=== PATIENT | male | born 1975 | race Caucasian/White ===

== ENCOUNTER 2024-12-20 13:40 | Emergency (ER) | payer OTHER ==
[2024-12-20 13:48] VITALS: TEMP 98.2
--- NOTE | 2024-12-20 13:53 | ED ---
General Adult HPI - General Chief complaint: Fall Stated complaint: Head injury Time Seen by Provider: 12/20/24 13:44 Source: patient, EMS, RN notes reviewed, old records reviewed Mode of arrival: ambulatory Limitations: no limitations - History of Present Illness Initial comments: 49-year-old male presents after fall which occurred several hours ago. Patient states he slipped on the ice hitting the back of his head around 10 AM. He states he had a headache and did not feel well so he laid down in his office. He was at work at the time and staff members were unable to contact him. Ultimately when he made contact the patient was sleeping on the floor of his office. 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 Complains of a headache. Patient removed his c-collar. He denies anticoagulation. Denies focal numbness or weakness. - Related Data Home Medications Medication Instructions Recorded Confirmed HYDROcodone/APAP 7.5-325MG [[place] 1 tab PO BID 12/20/24 12/20/24 7.5-325] HYDROcodone/APAP 7.5-325MG [[place] 1 tab PO DAILY PRN 12/20/24 12/20/24 7.5-325] Tirzepatide [Mounjaro] 5 mg SQ TU 12/20/24 12/20/24 Allergies Allergy/AdvReac Type Severity Reaction Status Date / Time No Known Allergies Allergy Verified 12/20/24 14:11 Review of Systems ROS Statement: Those systems with pertinent positive or pertinent negative responses have been documented in the HPI. ROS Other: All systems not noted in ROS Statement are negative. Past Medical History Past Medical History: Diabetes Mellitus History of Any Multi-Drug Resistant Organisms: None Reported Past Surgical History: Hernia Repair Additional Past Surgical History / Comment(s): eye surgery as a child Past Psychological History: No Psychological Hx Reported Smoking Status: Current every day smoker Past Alcohol Use History: Occasional Past Drug Use History: None Reported General Exam Limitations: no limitations General appearance: alert, in no apparent distress Head exam: Present: other (Tenderness on the occipital scalp) Eye exam: Present: normal appearance, PERRL ENT exam: Absent: TM's normal bilaterally (Left hemotympanum) Neck exam: Present: other (Refuses c-collar). Absent: tenderness Respiratory exam: Present: normal lung sounds bilaterally. Absent: respiratory distress, wheezes Cardiovascular Exam: Present: regular rate, normal rhythm GI/Abdominal exam: Present: soft. Absent: distended, tenderness, guarding Extremities exam: Present: normal inspection, normal capillary refill Neurological exam: Present: alert, oriented X3, CN II-XII intact, other (GCS 15). Absent: motor sensory deficit Psychiatric exam: Present: normal affect, normal mood Skin exam: Present: warm, dry, intact Course Vital Signs 12/20/24 12/20/24 12/20/24 13:41 14:12 14:19 Temperature 98.2 F Pulse Rate 96 94 98 Respiratory 20 18 18 Rate Blood Pressure 146/99 127/79 111/66 O2 Sat by Pulse 99 98 98 Oximetry Medical Decision Making - Medical Decision Making Was pt. sent in by a medical professional or institution (LISETH Rawls, THERAPIST PHYS, urgent care, hospital, or shelter...) When possible be specific @ -No Did you speak to anyone other than the patient for history (EMS, parent, family, police, friend...)? What history was obtained from this source @ -No Did you review nursing and triage notes (agree or disagree)? Why? @ -I reviewed and agree with nursing and triage notes Were old charts reviewed (outside hosp., previous admission, EMS record, old EKG, old radiological studies, urgent care reports/EKG's, shelter records)? Report findings @ -No old charts were reviewed Differential diagnosis:, concussion, intracranial hemorrhage, basilar skull fracture EKG interpreted by me (3pts min.). @ -Sinus rhythm rate of 94, NM interval 184, QRS duration 104, QTc [address] segment elevation. X-rays interpreted by me (1pt min.). @ -None done CT interpreted by me (1pt min.). @ -Brain CT showing traumatic subarachnoid hemorrhage, CT cervical spine negative for fracture or subluxation. U/S interpreted by me (1pt. min.). @ -None done What testing was considered but not performed or refused? (CT, X-rays, U/S, labs)? Why? @ -None What meds were considered but not given or refused? Why? @ -None Did you discuss the management of the patient with other professionals (professionals i.e. LISETH Rawls, THERAPIST PHYS, lab, RT, psych nurse, social work nurse, lens assistant, teacher, fisheries officer, case operator)? Give summary @Case discussed with transfer team at [facility], Dr. Toussaint Was smoking cessation discussed for >3mins.? @ -No Was critical care preformed (if so, how long)? @ -yes 35 min Were there social determinants of health that impacted care today? How? (Homelessness, low income, unemployed, alcoholism, drug addiction, transportation, low edu. Level, literacy, decrease access to med. care, halfway, rehab)? @ -No Was there de-escalation of care discussed even if they declined (Discuss DNR or withdrawal of care, Hospice)? DNR status @ -No What co-morbidities impacted this encounter? (DM, HTN, Smoking, COPD, CAD, Can cer, CVA, ARF, Chemo, Hep., AIDS, mental health diagnosis, sleep apnea, morbid obesity)? @ -None Was patient admitted / discharged? Hospital course, mention meds given and route, prescriptions, significant lab abnormalities, going to OR and other pertinent info. @ -49-year-old male presenting status post fall which occurred approximately 4 hours prior to arrival with occipital head injury, patient complaining of headache, no focal numbness or weakness, GCS of 15, vital signs are stable. CT brain showing subarachnoid hemorrhage, and fracture through the temporal bone with pneumocephalus. Patient covered with IV antibiotics, given Keppra for seizure prophylaxis. Transfer to [facility]. Undiagnosed new problem with uncertain prognosis? @ -No Drug Therapy requiring intensive monitoring for toxicity (Heparin, Nitro, Insulin, Cardizem)? @ -No Were any procedures done? @ -No Diagnosis/symptom? @Traumatic subarachnoid hemorrhage, basilar skull fracture Acute, or Chronic, or Acute on Chronic? @ -Acute Uncomplicated (without systemic symptoms) or Complicated (systemic symptoms)? @Complicated Side effects of treatment? @ -No Exacerbation, Progression, or Severe Exacerbation? @ -No Poses a threat to life or bodily function? How? (Chest pain, USA, AR, pneumonia, PE, COPD, DKA, ARF, appy, cholecystitis, CVA, Diverticulitis, Homicidal, Suicidal, threat to staff... and all critical care pts) @ -No - Lab Data Result diagrams: 12/20/24 14:09 Lab Results 12/20/24 Range/Units 14:09 WBC 17.9 H (3.8-10.6) k/uL RBC 5.41 (4.30-5.90) m/uL Hgb 17.2 (13.0-17.5) gm/dL Hct 51.1 (39.0-53.0) % MCV 94.5 (80.0-100.0) fL MCH 31.7 (25.0-35.0) pg MCHC 33.6 (31.0-37.0) g/dL RDW 13.4 (11.5-15.5) % Plt Count 250 (150-450) k/uL MPV 7.7 Neutrophils % 90 % Lymphocytes % 6 % Monocytes % 3 % Eosinophils % 0 % Basophils % 0 % Neutrophils # 16.1 H (1.3-7.7) k/uL Lymphocytes # 1.1 (1.0-4.8) k/uL Monocytes # 0.5 (0-1.0) k/uL Eosinophils # 0.1 (0-0.7) k/uL Basophils # 0.0 (0-0.2) k/uL Critical Care Time Critical Care Time: Yes Total Critical Care Time: 35 Disposition Clinical Impression: Fall, Acute intra-cranial hemorrhage, Subarachnoid hemorrhage, Skull fracture Disposition: OTHER INSTITUTION NOT DEFINED Condition: Serious Is patient prescribed a controlled substance at d/c from ED?: No Referrals: None,Stated [Primary Care Provider] - 1-2 days Time of Disposition: 14:17 - Out of Hospital Transfer - Req. Specs Out of Hospital Transfer - Requested Specifics: Other Emergency Center (Transfer To [facility])
[2024-12-20] MEDS: levETIRAcetam IV 2,000 MG in SODIUM CHLORIDE 0.9% 250 ML IVPB ONE (14:18)
[2024-12-20 14:22] LABS: Basophils % (A) 0 %; Eosinophils # (A) 0.1 k/uL (0-0.7); Eosinophils % (A) 0 %; HCT 51.1 % (39.0-53.0); HGB 17.2 gm/dL (13.0-17.5); Lymphocytes # (A) 1.1 k/uL (1.0-4.8); Lymphocytes % (A) 6 %; MCH 31.7 pg (25.0-35.0); MCHC 33.6 g/dL (31.0-37.0); MCV 94.5 fL (80.0-100.0); Mean Platelet Volume 7.7; Monocytes # (A) 0.5 k/uL (0-1.0); Monocytes % (A) 3 %; Neutrophils # (A) 16.1 k/uL (1.3-7.7); Neutrophils % (A) 90 %; Platelet Count 250 k/uL (150-450); RBC 5.41 m/uL (4.30-5.90); RDW 13.4 % (11.5-15.5); WBC 17.9 k/uL (3.8-10.6)
--- NOTE | 2024-12-20 14:27 | CT ---
EXAMINATION TYPE: CT brain radha wo con DATE OF EXAM: 12/20/2024 COMPARISON: None CLINICAL INDICATION: Male, 49 years old with history of fall, CHRISTINA, left-sided hemotympanum; PHH, fall, CHRISTINA, left-sided hemotympanum TECHNIQUE: CT scan of the head and cervical spine are performed without contrast. CT DLP: 1532.[address] CTDI: mGy Automated exposure control for dose reduction was used. Findings: Head CT: The ventricles, basal cisterns and sulci of the convexities are within normal limits and there is no mass effect or shift in midline structures. There is moderate to marked acute subarachnoid hemorrhage in the frontal lobes and in the left tempor al lobe including the sylvian fissure.. There are a few droplets of air in the extra-axial spaces in the left medial cranial fossa and there is a nondisplaced fracture through the superior aspect of the left temporal bones traversing the mastoid air cells. There is fluid or blood within the left mastoi d air cells and within the tympanic cavity. . Posterior fossa including the brainstem, fourth ventricle and cerebellar pontine angles are grossly normal. The intraorbital contents appear normal and symmetric. There are marked chronic inflammatory changes in the paranasal sinuses. CT cervical spine: Craniovertebral junction relationships and prevertebral soft tissues are normal. The cervical vertebral segments are normal in height and alignment and there is no fracture subluxati on. The disc spaces are well-maintained in height and there is no significant degenerative disc disease. The bony cervical canal is widely patent and there is no bony encroachment of the neural foramina. The paraspinal soft tissues unremarkable. IMPRESSION: 1. Head CT: Acute fracture through the left temporal bone and mastoid air cells resulting in air drop lets in the middle cranial fossa (pneumocephalus). There is acute subarachnoid hemorrhage involving t he frontal lobes and left temporal lobe. 2. CT cervical spine: No acute trauma. Emergency room physician was notified of this important finding on 2519 2:20 PM [facility], , 12/20/2024 2:25 PM
[2024-12-20] MEDS: HYDROmorphone 0.5 MG/0.5 ML SYRINGE IVP STA (14:29)
[2024-12-20 14:37] LABS: Influenza A Not Detected (Not Detectd); Influenza B Not Detected (Not Detectd); RSV Not Detected (Not Detectd)
[2024-12-20] MEDS: SODIUM CHLORIDE 0.9% 1,000 ML IV SCH (14:37)
[2024-12-20] MEDS: AMPICILLIN-SULBACTAM 3 GM in SODIUM CHLORIDE 0.9% 100 ML IVPB STA (14:37)
[2024-12-20 14:54] LABS: Partial Thromboplastin Time 24.6 sec (22.0-30.0); Prothrombin Time 11.4 sec (10.0-12.5)
[2024-12-20 15:01] VITALS: BP 126/76; PULSE 107; RESP 20
== END 2024-12-20 15:11 | disposition other institution (70) ==
LOC: EC 13:40
DX: S06.6XAA Traumatic subarachnoid hemorrhage with loss of consciousness status unknown, initial encounter (principal); S02.91XA Unspecified fracture of skull, initial encounter for closed fracture; F17.200 Nicotine dependence, unspecified, uncomplicated; W00.0XXA Fall on same level due to ice and snow, initial encounter
CPT/HCPCS: 36415; 93005; 85025; 85610; 85730; 87636; 72125; 70450; 99291; 96365; 96368; 96375; J0295; J1953; J1171

== ENCOUNTER → 2025-01-19 | Outpatient (CLI) | payer OTHER ==
--- NOTE | 2025-01-19 13:46 | CT ---
EXAMINATION TYPE: CT brain wo con CT DLP: 1207 mGycm, Automated exposure control for dose reduction was used. DATE OF EXAM: 01/19/2025 1:36 PM COMPARISON: CT brain C-spine 12/20/2024 CLINICAL INDICATION:Male, 49 years old with history of S02.91XS UNSPECIFIED FRACTURE OF SKULL, SEQUEL A, follow up skull fx TECHNIQUE: Brain: Multiple axial CT images of the brain were obtained without IV contrast. . Coronal and sagitta l reformats reviewed. FINDINGS: Brain: Extra-axial spaces: No abnormal extra-axial fluid collections. Resolution of previously demonstrated left subarachnoid hemorrhage involving the frontal lobes and temporal lobe. Resolution of pneumocepha david. Ventricular system: Within normal limits Cerebral parenchyma: No acute intraparenchymal hemorrhage or mass effect. Resolution of intraparench ymal hemorrhage involving the inferior left frontal lobe with some residual low density. The weber-whi te junction is well differentiated. Cerebellum: Unremarkable. Mass effect: No evidence of midline shift. Intracranial vasculature: unremarkable Soft tissues: Resolution of surrounding left temporal soft tissue gas. Calvarium/osseous structures: Redemonstration of nondisplaced fracture through the left temporal bone and mastoid air cells. No depressed skull fracture. Paranasal sinuses and mastoid air cells: Partial visualization of the bilateral maxillary sinuses dem onstrate some mucosal thickening. The remaining visualized paranasal sinuses are clear. The right mas toid air cells are clear. Left mastoid effusion redemonstrated. Visualized orbits: Orbital contents are intact. IMPRESSION: 1. No acute intracranial process. Resolution of previously demonstrated subarachnoid and intraparenc hymal hemorrhage. Resolution of pneumocephalus. 2. Redemonstration of nondisplaced fracture of the left temporal bone and mastoid air cells with lef t mastoid effusion redemonstrated. [facility], , 01/19/2025 1:44 PM
== END | disposition home or self-care (01) ==
LOC: RADCTMAIN 13:17
PROVIDERS: ATTEND Specialist
DX: S02.91XS Unspecified fracture of skull, sequela (principal); S06.5XAA Traumatic subdural hemorrhage with loss of consciousness status unknown, initial encounter; S02.19XA Other fracture of base of skull, initial encounter for closed fracture; X58.XXXA Exposure to other specified factors, initial encounter
CPT/HCPCS: 70450

== ENCOUNTER → 2025-02-06 | Outpatient (CLI) | payer OTHER ==
--- NOTE | 2025-02-07 13:50 | MR ---
EXAMINATION TYPE: MR brain wo/w cspine wo DATE OF EXAM: 02/06/2025 9:27 PM COMPARISON: CT brain 01/19/2025, CT brain C-spine 12/20/2024 CLINICAL INDICATION: Male, 49 years old with history of M54.2, S06.0XAA, Hx fall, concussion, skull f x, LUE/LLE pain. IV Contrast: 10 cc Gadobutrol (None if empty) TECHNIQUE: Multiplanar, multisequence images of the brain is performed without and with IV contrast utilizing ut ilizing 10 mL intravenous Gadobutrol. Multiplanar, multi sequence images of the cervical spine is per formed without intravenous contrast. FINDINGS: Diffusion weighted images demonstrate no evidence of a recent infarct or other diffusion ab normality. Confluent periventricular white matter changes most prominent within the bilateral parieta l lobes. The ventricular system and cisternal spaces are normal in size and appearance. The brain vo lume is age appropriate. There is blooming artifact identified within the subarachnoid spaces of the left frontal, parietal and temporal convexity related to hemosiderin deposition from prior subarachno id hemorrhage. There is a regions of blooming artifact within the bilateral inferior frontal lobes re lated to prior intraparenchymal hemorrhage/contusion. No definitive residual intraparenchymal or suba rachnoid hemorrhage identified. Midline structures demonstrate normal morphology. Known left temporal bone fracture is better appreci ated on prior CT. This extends to the left lambdoidal suture. The craniocervical junction appears wit hin normal limits. Post contrast images demonstrate 2 small regions of enhancement within the left temporal bone mastoid region at fracture site (series 1501, image 20 and 24). The dural venous sinuse s appear patent. Minimal mucosal thickening of the right maxillary sinus. Moderate mucosal thickening of the left maxillary sinus. Mild mucosal thickening in ethmoid sinuses. Left mastoid effusion. The globes are intact. Alignment: The cervical vertebral bodies have preserved heights. Alignment is within normal limits gi michelle patient positioning. Bones: Bone signal is within normal limits. No abnormal STIR signal. Cord: The spinal cord is unremarkable with regards to their signal intensity and morphology. Discs: Minimal multilevel disc desiccation is present. C2-C3: No significant disc pathology. The spinal canal is patent. No neural foraminal stenosis. C3-C4: No significant disc pathology. The spinal canal is patent. No neural foraminal stenosis. C4-C5: No significant disc pathology. The spinal canal is patent. No neural foraminal stenosis. C5-C6: No significant disc pathology. The spinal canal is patent. No neural foraminal stenosis. C6-C7: Minimal broad-based disc bulge without significant effacement of the anterior thecal sac. No c entral canal stenosis. Minimal bilateral neural foraminal narrowing. C7-T1: No significant disc pathology. The spinal canal is patent. No neural foraminal stenosis. Other: None. IMPRESSION: 1. No evidence of intracranial mass or acute/subacute infarct. 2. Posttraumatic changes with hemosiderin deposition from prior subarachnoid hemorrhage involving th e left cerebral convexity. Additional hemosiderin deposition from prior bilateral inferior frontal lo be contusion/intraparenchymal hemorrhage. Posttraumatic changes with left mastoid effusion and known left temporal bone fracture. There is enhancement identified along the fracture site suggesting infla mmation. 3. Nonspecific mild white matter changes, likely related to small vessel ischemic disease. 4. Minimal degenerative disc disease. No disc herniation. No significant spinal canal or neuroforami na stenosis. [facility], , 02/07/2025 1:48 PM
== END | disposition home or self-care (01) ==
LOC: RADMRIMAIN 20:45
PROVIDERS: ATTEND Psychiatry & Neurology Neurology
DX: S06.0XAA Concussion with loss of consciousness status unknown, initial encounter (principal); S02.19XA Other fracture of base of skull, initial encounter for closed fracture; R90.82 White matter disease, unspecified; M50.30 Other cervical disc degeneration, unspecified cervical region; Z86.79 Personal history of other diseases of the circulatory system
CPT/HCPCS: 70553; 72141; A9585

== ENCOUNTER 2025-04-28 11:30 | Emergency (ER) | payer BC, OTHER ==
--- NOTE | 2025-04-28 12:12 | CT ---
EXAMINATION TYPE: CT brain wo con DATE OF EXAM: 04/28/2025 11:50 AM COMPARISON: 01/19/2025. CLINICAL INDICATION: Male, 49 years old with history of head injury, HEADACHE TECHNIQUE: Brain: Axial CT images of the brain were obtained with coronal and sagittal reformats created and rev iewed. Contrast used: None. Oral contrast used: None. CT DLP: 1170.7 mGycm, Automated exposure control for dose reduction was used. FINDINGS: Brain: Extra-axial spaces: No abnormal extra-axial fluid collections. Ventricular system: Within normal limits Cerebral parenchyma: No acute intraparenchymal hemorrhage or mass effect. The weber-white junction is well differentiated. Cerebellum: Unremarkable. Mass effect: No evidence of midline shift. Intracranial vasculature: unremarkable Soft tissues: Normal. Calvarium/osseous structures: No depressed skull fracture. Paranasal sinuses and mastoid air cells: Mild scattered paranasal sinus disease. Visualized orbits: Orbital contents are intact. IMPRESSION: No acute intracranial process. [facility], , 04/28/2025 12:09 PM
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
[2025-04-28 12:29] VITALS: RESP 16
[2025-04-28 13:34] VITALS: BP 119/82; PULSE 75; TEMP 97.6
== END 2025-04-28 13:34 | disposition home or self-care (01) ==
LOC: EC 11:30
DX: S06.0XAA Concussion with loss of consciousness status unknown, initial encounter (principal); F17.200 Nicotine dependence, unspecified, uncomplicated; W22.8XXA Striking against or struck by other objects, initial encounter
CPT/HCPCS: 70450; 99284